=== PATIENT | female | born 1935 | race Caucasian/White ===

== ENCOUNTER 2022-12-13 22:06 | Observation (INO) ==
[2022-12-14 00:26] LABS: HDL Cholesterol 46.6 mg/dL
[2022-12-14] MEDS ORDERED: levETIRAcetam 1000MG IVPREMIX 1,000 MG/100 ML BAG IVPB SCH ×2 (06:00)
[2022-12-14 07:04] LABS: ABS Eosinophils 0.1 10^3/uL (0.0-0.5); ABS Lymphocytes 1.5 10^3/uL (1.0-4.8); ABS Monocytes 0.9 10^3/uL (0.0-0.9); ABS Neutrophils 4.2 10^3/uL (1.5-7.6); Eosinophil % 1.3 %; Hematocrit 32.5 % (35-45); Hemoglobin 11.1 g/dL (11.5-14.3); Lymphocyte % 22.7 %; Mean Corpuscular Hemoglobin 30.6 pg (27-33); Mean Corpuscular Hgb Conc 34.1 g/dL (31-36); Mean Corpuscular Volume 89.8 fL (80-97); Mean Platelet Volume 8.5 fL (7.5-11.2); Nucleated Red Blood Cells % 0.1 /100 WBC (0.0-0.4); Platelet Count 182 10^3/uL (150-450); Red Blood Count 3.62 10^6/uL (3.63-4.92); Red Cell Distribution Width 13.5 % (12-17); White Blood Count 6.7 10^3/uL (3.8-11.8)
[2022-12-14 07:21] LABS: Calcium 8.8 mg/dL (8.6-10.3); Creatinine, Serum 1.01 mg/dL (0.51-0.95); Potassium 4.2 mmol/L (3.5-5.0); eGFR CKD-EPI 54.6 (>60)
[2022-12-14 10:00] LABS: TSH Ultra Thyroid Stim Horm 3.43 mcIU/mL (0.34-5.60)
[2022-12-14] MEDS ORDERED: LORazepam 2 mg VIAL 1 ml IV PUSH PRN (17:58)
[2022-12-14] MEDS ORDERED: Lorazepam PYXIS KEY PRN (17:58)
[2022-12-14] MEDS: levETIRAcetam LIQ 500 MG/5 ML UDC PO SCH (21:30)
[2022-12-15 07:04] LABS: Hematocrit 34.5 % (35-45); Mean Corpuscular Hemoglobin 31.6 pg (27-33); Mean Corpuscular Hgb Conc 34.8 g/dL (31-36); Mean Corpuscular Volume 90.6 fL (80-97); Mean Platelet Volume 8.6 fL (7.5-11.2); Platelet Count 194 10^3/uL (150-450); Red Blood Count 3.81 10^6/uL (3.63-4.92); Red Cell Distribution Width 13.5 % (12-17); White Blood Count 5.4 10^3/uL (3.8-11.8)
[2022-12-15 07:19] LABS: Calcium 8.9 mg/dL (8.6-10.3); Creatinine, Serum 0.99 mg/dL (0.51-0.95); Potassium 4.2 mmol/L (3.5-5.0); eGFR CKD-EPI 55.9 (>60)
[2022-12-15] MEDS: levETIRAcetam LIQ 500 MG/5 ML UDC PO SCH (08:33)
[2022-12-15 15:51] VITALS: BP 126/62
== END 2022-12-15 18:34 | disposition home or self-care (01) ==
LOC: ED 22:06 → EDHOLD 22:06 → SUATTDRO 23:03 → MEDTELE 12-14 00:57
PROVIDERS: ADMIT Internal Medicine; ATTEND Internal Medicine

== ENCOUNTER 2023-09-03 00:26 | Inpatient (IN) ==
[2023-09-03] MEDS ORDERED: Lorazepam PYXIS KEY PRN ×2 (01:32→09:52)
[2023-09-03] MEDS: LORazepam 2 mg VIAL 1 ml IV PUSH ONE ×2 (01:36→09:59)
[2023-09-03 03:06] LABS: ABS Lymphocytes 1.2 10^3/uL (1.0-4.8); ABS Monocytes 0.7 10^3/uL (0.0-0.9); ABS Neutrophils 5.6 10^3/uL (1.5-7.6); Eosinophil % 0.1 %; Mean Corpuscular Hemoglobin 32.5 pg (27-33); Mean Corpuscular Hgb Conc 34.5 g/dL (31-36); Mean Corpuscular Volume 94.4 fL (80-97); Mean Platelet Volume 8.4 fL (7.5-11.2); Nucleated Red Blood Cells % 0.1 %/100WBC (0.0-0.8); Platelet Count 196 10^3/uL (150-450); Red Blood Count 3.39 10^6/uL (3.63-4.92); Red Cell Distribution Width 13.3 % (12-17); White Blood Count 7.5 10^3/uL (3.8-11.8)
[2023-09-03 03:43] LABS: Albumin 3.5 g/dL (3.2-5.2); Albumin/Globulin Ratio 1.4 (1-3); C Reactive Protein 1.04 mg/L (<8.01); Calcium 8.2 mg/dL (8.6-10.3); Creatinine, Serum 1.03 mg/dL (0.51-0.95); Globulin 2.5 g/dL (2-4); Potassium 4.2 mmol/L (3.5-5.0); Total Bilirubin 0.4 mg/dL (0.2-1.0); eGFR CKD-EPI 53.3 (>60)
[2023-09-03 04:15] LABS: Erythrocyte Sed Rate 21 mm/Hr (0-29)
[2023-09-03] MEDS: levETIRAcetam IV 1,500 MG in NS 0.9% 100 ml BAG 100 ML IVPB SCH (09:45)
[2023-09-03] MEDS ORDERED: LORazepam 2 mg VIAL 1 ml ONE (09:51)
[2023-09-03] MEDS: Enoxaparin 60 MG/0.6 ML SYR SUBCUT SCH (09:53)
[2023-09-03] MEDS: Pantoprazole VIAL 40 MG VIAL IV SCH (09:59)
[2023-09-03 15:48] LABS: Folate 9.58 ng/mL (5.90-24.80)
[2023-09-03 16:11] LABS: TSH Ultra Thyroid Stim Horm 1.92 mcIU/mL (0.34-5.60)
[2023-09-03 18:38] LABS: High Sensitivity Troponin 1 Hr 51 pg/mL (<15)
[2023-09-03] MEDS: Gadoteridol (CONTRAST) 279.3 MG/ML 10 ML IV ONE (20:46)
[2023-09-04 06:30] LABS: ABS Eosinophils 0.1 10^3/uL (0.0-0.5); ABS Lymphocytes 1.4 10^3/uL (1.0-4.8); ABS Monocytes 0.5 10^3/uL (0.0-0.9); ABS Neutrophils 2.8 10^3/uL (1.5-7.6); ABS Nucleated RBC 0.01 10^3/ul; Eosinophil % 1.7 %; Hematocrit 31.4 % (35-45); Hemoglobin 10.9 g/dL (11.5-14.3); Lymphocyte % 28.7 %; Mean Corpuscular Hemoglobin 32.8 pg (27-33); Mean Corpuscular Hgb Conc 34.8 g/dL (31-36); Mean Corpuscular Volume 94.1 fL (80-97); Mean Platelet Volume 8.5 fL (7.5-11.2); Nucleated Red Blood Cells % 0.1 %/100WBC (0.0-0.8); Platelet Count 178 10^3/uL (150-450); Red Blood Count 3.34 10^6/uL (3.63-4.92); Red Cell Distribution Width 13.2 % (12-17); White Blood Count 4.9 10^3/uL (3.8-11.8)
[2023-09-04 06:53] LABS: Calcium 8.6 mg/dL (8.6-10.3); Creatinine, Serum 0.82 mg/dL (0.51-0.95); Potassium 4.3 mmol/L (3.5-5.0); eGFR CKD-EPI 70.1 (>60)
[2023-09-04] MEDS: levETIRAcetam IV 1,500 MG in NS 0.9% 100 ml BAG 100 ML IVPB SCH (09:17)
[2023-09-04] MEDS: Carbidopa/Levodop 25/100 MG TAB PO SCH (20:17)
[2023-09-05 07:00] LABS: ABS Eosinophils 0.1 10^3/uL (0.0-0.5); ABS Lymphocytes 1.5 10^3/uL (1.0-4.8); ABS Monocytes 0.5 10^3/uL (0.0-0.9); ABS Neutrophils 3.1 10^3/uL (1.5-7.6); Eosinophil % 2.4 %; Hematocrit 31.5 % (35-45); Hemoglobin 10.6 g/dL (11.5-14.3); Mean Corpuscular Hemoglobin 31.4 pg (27-33); Mean Corpuscular Hgb Conc 33.5 g/dL (31-36); Mean Corpuscular Volume 93.7 fL (80-97); Mean Platelet Volume 8.1 fL (7.5-11.2); Platelet Count 189 10^3/uL (150-450); Red Blood Count 3.36 10^6/uL (3.63-4.92); Red Cell Distribution Width 13.1 % (12-17); White Blood Count 5.2 10^3/uL (3.8-11.8)
[2023-09-05 07:54] LABS: Calcium 8.8 mg/dL (8.6-10.3); Creatinine, Serum 0.91 mg/dL (0.51-0.95); Magnesium 1.8 mg/dL (1.9-2.7); Potassium 3.9 mmol/L (3.5-5.0); eGFR CKD-EPI 61.8 (>60)
[2023-09-05] MEDS: Magnesium Sulfate 2 gm BAG 2 GM/50 ML BAG IVPB ONE (09:42)
[2023-09-05] MEDS: Enoxaparin 60 MG/0.6 ML SYR SUBCUT ONE (15:10)
[2023-09-06] MEDS ORDERED: VERAPAMIL 2.5 MG/ML 2 ML VIAL ** 5 mg/2 ml ONE (09:01)
[2023-09-06] MEDS ORDERED: Midazolam 5 mg/5 ml VIAL 1 mg/ml 5 ml VIAL (5 mg) ONE ×2 (09:01→09:10)
[2023-09-06] MEDS ORDERED: fentaNYL 100 mcg/2 ml 50 MCG/ML VIAL ONE (09:01)
[2023-09-06] MEDS ORDERED: Heparin 1,000 UNIT/ML 10 ml (10,000 UNITS) CATHLAB/DIALYSIS ONE (09:01)
[2023-09-06] MEDS ORDERED: Lidocaine 1% MPF 5 ML VIAL ONE ×2 (09:02→13:15)
[2023-09-06] MEDS ORDERED: Iohexol 350 (CONTRAST) 200 ML MDV IV ONE (09:02)
[2023-09-06] MEDS ORDERED: nitroGLYCERIN DRIP 25,000 MCG/250 ML BTL ONE (09:02)
[2023-09-06] MEDS ORDERED: Heparin 2 UNITS/ML 1000 mls 2,000 ML IV ONE (09:02)
[2023-09-06] MEDS: fentaNYL 100 mcg/2 ml 50 MCG/ML VIAL IV SLOW PU ONE (09:22)
[2023-09-06] MEDS: Midazolam 10 mg/10 ml VIAL 1 mg/ml 10 ml VIAL (10 mg) IV SLOW PU ONE (09:22)
[2023-09-06] MEDS: NS 0.9% 1000 ml BAG 1,000 ML IV SCH (10:55)
[2023-09-07 06:05] LABS: Calcium 8.5 mg/dL (8.6-10.3); Creatinine, Serum 0.9 mg/dL (0.51-0.95); Potassium 4.1 mmol/L (3.5-5.0); eGFR CKD-EPI 62.6 (>60)
[2023-09-07 10:00] LABS: HDL Cholesterol 46.1 mg/dL
[2023-09-07 10:26] VITALS: BP 115/61
== END 2023-09-07 12:30 | disposition home or self-care (01) | DRG 101 ==
LOC: ED 00:26 → SUATTDRO 02:26 → EDHOLD 02:29 → SUATTDRO 02:29 → INTOOBSV 02:29 → MED 23:22 → MEDTELE 09-06 14:29
PROVIDERS: ADMIT Internal Medicine; ATTEND Internal Medicine

== ENCOUNTER 2024-01-17 14:49 | Inpatient (IN) ==
[2024-01-17 15:44] LABS: INR 1.72 (0.83-1.13)
[2024-01-17 16:02] LABS: High Sens Troponin Baseline 25 pg/mL (<15)
[2024-01-17 16:14] LABS: Albumin 3.2 g/dL (3.2-5.2); Albumin/Globulin Ratio 1.3 (1-3); Alkaline Phosphatase 69 U/L (35-149); Blood Urea Nitrogen 17 mg/dL (6-24); CO2 Carbon Dioxide 28 mmol/L (22-32); Calcium 7.9 mg/dL (8.6-10.3); Chloride 105 mmol/L (101-111); Creatinine, Serum 1.03 mg/dL (0.51-0.95); Globulin 2.4 g/dL (2-4); Glucose 104 mg/dL (70-100); Sodium 138 mmol/L (135-145); Total Bilirubin 0.4 mg/dL (0.2-1.0); Total Protein 5.6 g/dL (6.4-8.9)
[2024-01-17 16:33] LABS: ABS Lymphocytes 0.5 10^3/uL (1.0-4.8); ABS Monocytes 0.4 10^3/uL (0.0-0.9); ABS Neutrophils 5.8 10^3/uL (1.5-7.6); Eosinophil % 0.1 %; Hemoglobin 10.9 g/dL (11.5-14.3); Lymphocyte % 7.3 %; Mean Corpuscular Hemoglobin 33.2 pg (27-33); Mean Corpuscular Hgb Conc 34.2 g/dL (31-36); Mean Corpuscular Volume 97.2 fL (80-97); Mean Platelet Volume 8.1 fL (7.5-11.2); Platelet Count 136 10^3/uL (150-450); Red Blood Count 3.29 10^6/uL (3.63-4.92); Red Cell Distribution Width 14.1 % (12-17); White Blood Count 6.8 10^3/uL (3.8-11.8)
[2024-01-17 16:34] LABS: ALT < 3 U/L (7-52)
[2024-01-17 16:35] LABS: AST 10 U/L (13-39); Anion Gap 5 mmol/L (2-16); Potassium 3.6 mmol/L (3.5-5.0)
[2024-01-17 16:58] LABS: High Sensitivity Troponin 1 Hr 25 pg/mL (<15)
[2024-01-18 06:13] LABS: ABS Eosinophils 0.1 10^3/uL (0.0-0.5); ABS Lymphocytes 1.2 10^3/uL (1.0-4.8); ABS Monocytes 0.7 10^3/uL (0.0-0.9); ABS Neutrophils 4.6 10^3/uL (1.5-7.6); Eosinophil % 0.9 %; Hematocrit 31.6 % (35-45); Hemoglobin 10.9 g/dL (11.5-14.3); Lymphocyte % 18.4 %; Mean Corpuscular Hemoglobin 33.5 pg (27-33); Mean Corpuscular Hgb Conc 34.4 g/dL (31-36); Mean Corpuscular Volume 97.5 fL (80-97); Mean Platelet Volume 7.9 fL (7.5-11.2); Nucleated Red Blood Cells % 0.1 %/100WBC (0.0-0.8); Platelet Count 147 10^3/uL (150-450); Red Blood Count 3.24 10^6/uL (3.63-4.92); White Blood Count 6.6 10^3/uL (3.8-11.8)
[2024-01-18] MEDS: Carbidopa/Levodop 25/100 MG TAB PO SCH (08:52)
[2024-01-18 10:15] LABS: Calcium 8.1 mg/dL (8.6-10.3); Creatinine, Serum 0.97 mg/dL (0.51-0.95); Magnesium 1.7 mg/dL (1.9-2.7); eGFR CKD-EPI 56.9 (>60)
[2024-01-18 14:46] LABS: Free T3 1.52 pg/mL (2.5-3.9)
[2024-01-19 05:46] LABS: ABS Eosinophils 0.1 10^3/uL (0.0-0.5); ABS Lymphocytes 1.3 10^3/uL (1.0-4.8); ABS Monocytes 0.5 10^3/uL (0.0-0.9); ABS Neutrophils 3.1 10^3/uL (1.5-7.6); Eosinophil % 1.1 %; Hemoglobin 10.7 g/dL (11.5-14.3); Lymphocyte % 25.8 %; Mean Corpuscular Hemoglobin 32.3 pg (27-33); Mean Corpuscular Hgb Conc 33.5 g/dL (31-36); Mean Corpuscular Volume 96.6 fL (80-97); Mean Platelet Volume 8.4 fL (7.5-11.2); Platelet Count 137 10^3/uL (150-450); Red Blood Count 3.31 10^6/uL (3.63-4.92); Red Cell Distribution Width 14.5 % (12-17)
[2024-01-19 05:59] LABS: Calcium 8.4 mg/dL (8.6-10.3); Magnesium 1.8 mg/dL (1.9-2.7); Potassium 4.6 mmol/L (3.5-5.0); eGFR CKD-EPI 54.9 (>60)
[2024-01-19] MEDS: Magnesium Sulfate 2 gm BAG 2 GM/50 ML BAG IVPB ONE (08:45)
[2024-01-20 05:28] LABS: ABS Eosinophils 0.1 10^3/uL (0.0-0.5); ABS Lymphocytes 1.2 10^3/uL (1.0-4.8); ABS Monocytes 0.5 10^3/uL (0.0-0.9); ABS Neutrophils 3.1 10^3/uL (1.5-7.6); Eosinophil % 1.3 %; Hematocrit 29.4 % (35-45); Hemoglobin 10.3 g/dL (11.5-14.3); Lymphocyte % 24.2 %; Mean Corpuscular Hemoglobin 33.8 pg (27-33); Mean Corpuscular Volume 96.5 fL (80-97); Mean Platelet Volume 8.2 fL (7.5-11.2); Platelet Count 129 10^3/uL (150-450); Red Blood Count 3.05 10^6/uL (3.63-4.92); Red Cell Distribution Width 14.4 % (12-17)
[2024-01-20 06:00] LABS: Creatinine, Serum 0.97 mg/dL (0.51-0.95); Potassium 4.7 mmol/L (3.5-5.0); eGFR CKD-EPI 56.9 (>60)
[2024-01-21 06:13] LABS: ABS Eosinophils 0.1 10^3/uL (0.0-0.5); ABS Lymphocytes 1.4 10^3/uL (1.0-4.8); ABS Monocytes 0.6 10^3/uL (0.0-0.9); Eosinophil % 1.1 %; Hemoglobin 10.8 g/dL (11.5-14.3); Lymphocyte % 22.7 %; Mean Corpuscular Hemoglobin 32.7 pg (27-33); Mean Corpuscular Hgb Conc 33.8 g/dL (31-36); Mean Platelet Volume 8.6 fL (7.5-11.2); Nucleated Red Blood Cells % 0.1 %/100WBC (0.0-0.8); Platelet Count 137 10^3/uL (150-450); Red Cell Distribution Width 14.2 % (12-17); White Blood Count 6.1 10^3/uL (3.8-11.8)
[2024-01-21 06:57] LABS: Calcium 8.3 mg/dL (8.6-10.3); Creatinine, Serum 1.02 mg/dL (0.51-0.95); Magnesium 1.8 mg/dL (1.9-2.7); Potassium 5.2 mmol/L (3.5-5.0); eGFR CKD-EPI 53.6 (>60)
[2024-01-21] MEDS: Magnesium Sulfate 2 gm BAG 2 GM/50 ML BAG IVPB ONE (09:58)
[2024-01-21] MEDS: SODIUM ZIRCONIUM CYCLOSILICATE 5 GM PACKET PO SCH (10:59)
[2024-01-21 13:37] LABS: Calcium 8.2 mg/dL (8.6-10.3); Creatinine, Serum 0.97 mg/dL (0.51-0.95); Potassium 4.5 mmol/L (3.5-5.0); eGFR CKD-EPI 56.9 (>60)
[2024-01-21 14:36] VITALS: BP 102/50
== END 2024-01-21 17:33 | disposition home or self-care (01) | DRG 57 ==
LOC: ED 14:49 → EDHOLD 14:49 → SUATTDRO 19:17 → MEDTELE 01-18 12:48
PROVIDERS: ADMIT Student in an Organized Health Care Education/Training Program; ATTEND Internal Medicine